=== PATIENT | male | born 1985 | race Caucasian/White ===

== ENCOUNTER 2021-04-26 18:04 | Emergency (ER) | payer BC, SELFPAY ==
--- NOTE | 2021-04-26 18:04 | ECG_ITS ---
APPROVED REPORT Exam: Resting ECG HR:89 bpm ECG Measurements Heart Rate 89 AXES VA 150 P 41 QRSd 90 QRS 70 QT 336 T 52 QTc 408 Conclusion Normal sinus rhythm Normal ECG Electronically signed by : Ray Cunningham MD 04/29/2021 10:56:12
[2021-04-26 18:10] VITALS: BP 155/83; PULSE 87; RESP 18; TEMP 36.8; O2SAT 97; BMI 40.7
--- NOTE | 2021-04-26 18:16 | XR_ITS ---
PROCEDURE INFORMATION: Exam: XR Chest Exam date and time: 04/26/2021 6:16 PM Age: 36 years old Clinical indication: Chest wall pain; Additional info: Cp TECHNIQUE: Imaging protocol: XR of the chest. Views: 1 view. COMPARISON: No relevant prior studies available. FINDINGS: Lungs: Unremarkable. No consolidation. Pleural spaces: Unremarkable. No pleural effusion. No pneumothorax. Heart/Mediastinum: Unremarkable. No cardiomegaly. Bones/joints: Unremarkable. IMPRESSION: No acute findings.
--- NOTE | 2021-04-26 18:16 | [facility].EDCP ---
ED Disposition Clinical Impression: Atypical chest pain Disposition: Home, Self-Care Condition on Discharge: Good Instructions: DI for Atypical Chest Pain Additional Instructions: Low up with your primary care doctor even if you feel better or well. I suggest that you discuss the possibility of a cardiac stress test with your doctor. Return to the emergency department if you feel worse in any way. You may want to try some antacids for the next few days to see if your symptoms improve. Referrals: Provider,Referral, [Referring] - 3 days - Critical Care Critical Care Time: No Attestation: On 04/26/21, the high probability of a clinically significant, sudden or life threatening deterioration of the following system(s) required my full and direct attention, intervention and personal management. The time I documented below is in addition to time spent performing reported procedures but includes the following listed in this critical care notation. Medical Decision Making - Medical Records Medical records reviewed: Yes: I reviewed the patient's medical records. - [place] Inquiry Pt receiving controlled substance: No Vital Signs: 04/26/21 18:10 Temperature 98.2 F Temperature Source Oral Pulse Rate [Right Radial] 87 Respiratory Rate 18 Blood Pressure [Right Arm] 155/83 H Blood Pressure Mean [Right Arm] 107 Blood Pressure Source [Right Arm] Automatic Cuff Blood Pressure Position [Right Arm] Sitting 02 Sat by Pulse Oximetry 97 Oxygen Delivery Method Room Air - Lab Data Lab results reviewed: Yes: I reviewed the patient's lab results. Lab Results 04/26/21 18:10: WBC 10.9 H, RBC 5.31, Hgb 15.1, Hct 45.3, MCV 85.3, MCH 28.4, MCHC 33.3, RDW 13.4, Plt Count 320, MPV 7.5, Neut % (Auto) 70.1, Lymph % (Auto) 22.0, Nicollet % (Auto) 5.9, Eos % (Auto) 1.6, Baso % (Auto) 0.4, Neut # (Auto) 7.6, Lymph # (Auto) 2.4, Nicollet # (Auto) 0.7, Eos # (Auto) 0.2, Baso # (Auto) 0.0 04/26/21 18:10: Sodium 137, Potassium 4.2, Chloride 101, Carbon Dioxide 27, Anion Gap 13.2, BUN 11, Creatinine 0.70, Estimated Creat Clear 243, Estimated GFR 128, Est GFR ( Amer) 154, Glucose 245 H, Calcium 8.9, Total Bilirubin 0.2, AST 37, ALT 48, Alkaline Phosphatase 89, Troponin I < 0.01, Total Protein 7.1, Albumin 4.0, Globulin 3.1, Albumin/Globulin Ratio 1.3 Result diagrams: 04/26/21 18:10 04/26/21 18:10 Orders (Tests/Meds): ED MEDICATIONS Discontinued Medications Generic Name Dose Route Start Last Admin Trade Name Willy PRN Reason Stop Dose Admin Aspirin 324 mg 04/26/21 18:16 04/26/21 18:35 Aspirin 81mg Chewable Tablet PO 04/26/21 18:17 324 mg ONCE ONE Administration ORDERS Category Date Time Status Troponin I Q3H Lab 04/26/21 21:30 Ordered ECG Request by /Tyler Stat Y 04/26/21 18:16 Ordered - Radiology Data #1 Image(s): Chest Image Reviewed: Yes I reviewed the patient's radiology image, Yes I have reviewed radiologist's interpretation Preliminary Findings: Normal/NAD - ECG Data Tracing #1 I reviewed this ECG and interpreted as documented below: EGD was done at 1805. It shows a normal sinus rhythm with a rate of 89. There is no ischemia, the intervals are normal, and there are normal axes, there is no dysrhythmia. - SURJIT Score for Stemi Age of Patient: 30-39 years old Heart Rate: 70-89 bpm Systolic Blood Pressure: 140-159 mmHg Serum Creatinine: 0.40-0.79 mg/dl CHF Killip Class: I-No CHF Other Risk Factors: None Stemi Risk Score: 45 Medical Decision Narrative: The patient's work-up in the emergency department did not reveal any life-threatening or dangerous causes for the patient's chest pain. His Wells score for pulmonary embolus is low. Surjit score for acute coronary syndrome is also low. Troponin is undetectable. His pain has been going on for 4 days. I do not believe that the patient's symptoms are secondary to dangerous or life-threatening conditions. The patient's chest x-ray is
[2021-04-26 18:30] LABS: Basophils % 0.4 % (0.1-2.0); Eosinophils # 0.2 K/mm3 (0.0-0.4); Eosinophils % 1.6 % (0.1-12.0); Hematocrit 45.3 % (42.0-52.0); Hemoglobin 15.1 g/dL (14.1-18.0); Lymphocytes # 2.4 K/mm3 (0.7-4.5); Mean Corpuscular HGB Conc 33.3 g/dL (31.8-35.4); Mean Corpuscular Hemoglobin 28.4 pg (27.0-31.2); Mean Corpuscular Volume 85.3 fl (80-94); Mean Platelet Volume 7.5 fl (7.4-10.4); Monocytes # 0.7 K/mm3 (0.1-1.0); Monocytes % 5.9 % (1.7-9.3); Neutrophils # 7.6 K/mm3 (1.8-7.8); Neutrophils % 70.1 % (37.0-80.0); Platelet Count 320 K/mm3 (142-424); Red Blood Count 5.31 M/mm3 (4.60-6.20); Red Cell Distribution Width 13.4 % (11.5-17.5); White Blood Count 10.9 K/mm3 (4.8-10.8)
[2021-04-26 18:39] LABS: Alanine Aminotransferase 48 U/L (12-78); Albumin/Globulin Ratio 1.3 (1.1-1.8); Alkaline Phosphatase 89 U/L (38-126); Anion Gap 13.2 mEq/L (5-15); Aspartate Amino Transferase 37 U/L (17-59); Bilirubin,Total 0.2 mg/dl (0.2-1.3); Blood Urea Nitrogen 11 mg/dl (9-20); Calcium 8.9 mg/dl (8.4-10.2); Carbon Dioxide 27 mmol/L (22.0-30.0); Chloride 101 mmol/L (98-107); Creatinine Clearance Estimated 243 mL/min (50-200); Estimated Glomerular Filt Rate 128 ml/min (>60); GFR (African American) 154 ML/MIN (>60); Globulin 3.1 g/dL (1.3-3.2); Glucose 245 mg/dl (74-100); Potassium 4.2 mmoL/L (3.5-5.1); Sodium 137 mmol/L (136-145); Total Protein,Serum 7.1 g/dl (6.3-8.2)
[2021-04-26 18:58] LABS: Troponin I < 0.01 ng/ml (0.00-0.034)
[2021-04-26 19:09] VITALS: BP 150/72; PULSE 80; RESP 18; TEMP 36.8; O2SAT 97
== END 2021-04-26 19:10 | disposition home or self-care (01) ==
PROVIDERS: Emergency Provider Emergency Medicine; PCP Family Medicine
DX: R07.89 Other chest pain (principal); K21.9 Gastro-esophageal reflux disease without esophagitis; I10 Essential (primary) hypertension
CPT/HCPCS: 71045; 80053; 84484; 85025; 93005; 99283

== ENCOUNTER → 2021-05-11 07:02 | Outpatient (CLI) | payer BC, SELFPAY ==
--- NOTE | 2021-05-11 07:03 | CT_ITS ---
PROCEDURE: CT ANGIO CHEST PE PROTOCOL CLINCIAL INDICATION: cp/dyspnea COMPARISON: No exams were available for comparison TECHNIQUE: IV Contrast: 70ML Isovue 370 Axial images obtained with sagittal and coronal reformats. All CT scans at the facility use one or more dose reduction, viz: automated exposure control, ma/kV adjustment per patient size (including targeted exams where dose is matched to indication, i.e. head), or iterative reconstruction technique. FINDINGS: HEART AND MEDIASTINAL STRUCTURES: There is less than optimal opacification of the pulmonary arteries. No central pulmonary embolus is evident. Peripheral pulmonary artery opacification is limited with no obvious emboli. No evidence of aortic aneurysm or dissection. No mediastinal or hilar mass. LUNGS AND PLEURAL SPACES: Unremarkable. BONY STRUCTURES: Mild dextro scoliosis of the thoracic spine. There is exaggerated midthoracic lordosis UPPER ABDOMEN: Fatty liver. 4 mm nonobstructing stone upper pole left kidney. ADDITIONAL FINDINGS: No other significant abnormalities. IMPRESSION: No acute finding. Somewhat limited opacification of the pulmonary arteries with no central pulmonary embolus evident. Left nephrolithiasis Dictated by: Tony Berman MD 05/13/2021 08:53 Tony Berman MD in [place] 05/13/2021 08:53
--- NOTE | 2021-05-11 07:03 | CA_ITS ---
APPROVED REPORT EXAM: Comprehensive 2D, Doppler, and color-flow Echocardiogram Tool/Die Maker: Yoli Andrews, RCS, RVS Ht: 5 ft 7 in Wt: 266lbs BSA: 2.28 BP: 140/90 mmHg Indications: CP, SOB, Hx-palpitations 2D Dimensions Aortic Root 3.12 cm LA Volume 32.50 mL Left Atrium 2.93 cm LA Volume Index 14.30 mL/m2 (M/F) 16-34 LVOT 1.74 cm (M/F) 1.5-2.5 M-Mode Dimensions RVDd 3.30 cm (0.9-2.6) LA Diam 3.11 cm (1.9-4.0) LVDd 5.28 cm (3.5-5.7) Ao Diam 3.58 cm (2.0-3.7) LVDs 3.19 cm (3.5-5.7) IVSd 1.02 cm (0.6-1.1) PWd 1.02 cm (0.6-1.1) EF (Teich) 70.10% EPSs 0.46 cm FS 39.90% EDV (Teich) 135.90 mL TAPSE 2.64 (<1.7) ESV (Teich) 40.60 mL LV Diastology E Decel Time 227.00 (160-240 msec) E/A Ratio 1.02 MED E' 11.60 (< 7 cm/sec) MED A' 10.50 cm/s E'/MED E' Ratio 6.17 (>14) LAT E' 11.40 (<10 cm/sec) LAT A' 9.70 cm/s E/LAT E' Ratio 6.28 (>14) Aortic Valve LVOT Max 136.00 (70-110 cm/s) LVOT VTI 21.64 cm AoV Peak Mt. 168.00 (50-130 cm/s) AO Peak GR. 11.30 mmHg AO Mean GR. 5.50 (<5 mmHg) AO VTI 24.56 (18-25 cm) ADRIÁN (VTI) 2.10 (2.5-4.5 cm2) Mitral Valve MV A Velocity 70.00 (40-130 cm/s) E/A Ratio 1.02 MV Decel. Time 227.00 (160-240 ms) Pulmonary Valve PV Peak Velocity 97.00 (50-150 cm/s) WA End VMAX 177.00 cm/s Tricuspid Valve TR P. Velocity 205.00 cm/s RAP Estimate 10.00 mmHg RVSP 26.80 mmHg Left Ventricle Left atrium normal size, left ventricle is normal size, left ventricle wall thickness is upper limit of normal, there is preserved left ventricular systolic function, visually estimated ejection fraction 55% with no regional wall motion abnormality. Diastolic parameters are within normal range. Right Ventricle Right atrium and right ventricle are normal size and contractility. Aortic Valve Aortic valve is grossly normal, there is no aortic stenosis or aortic insufficiency. Mitral Valve Mitral valve is grossly normal, there is trace mitral regurgitation. Tricuspid Valve Tricuspid valve grossly normal, there is trace tricuspid regurgitation, tricuspid regurgitation jet velocity is inadequate for calculation of the right ventricular systolic pressure. Pulmonic Valve Pulmonic valve is poorly visualized. Great Vessels Aortic root is normal size. Pericardium No significant pericardial effusion noted. Conclusion 1. Normal left ventricular size, preserved left ventricular systolic function, visually estimated ejection fraction 55% with no regional wall motion abnormality, diastolic parameters are within normal range. 2. Trace mitral and tricuspid regurgitation. 3. No significant pericardial effusion noted. Electronically signed by : Bin Peña MD 05/12/2021 11:14:30
== END ==
LOC: RAD 07:03
PROVIDERS: PCP Family Medicine; Visit Provider Internal Medicine Cardiovascular Disease
DX: R06.00 Dyspnea, unspecified (principal); R07.9 Chest pain, unspecified
CPT/HCPCS: 71275; 93306; Q9967